=== PATIENT | male | born 1980 | race Native Hawaiian/Other Pacific Islander ===

== ENCOUNTER 2018-08-29 12:36 | Outpatient (CLI) | payer OTHER | END 2018-08-29 12:53 | disposition short-term general hospital (02) | LOC: AMB 12:36 | DX: R10.9 Unspecified abdominal pain (principal); W10.8XXA Fall (on) (from) other stairs and steps, initial encounter; X08.8XXA Exposure to other specified smoke, fire and flames, initial encounter; Y92.010 Kitchen of single-family (private) house as the place of occurrence of the external cause | CPT/HCPCS: A0425; A0427 ==

== ENCOUNTER 2018-08-29 13:02 | Emergency (ER) | payer OTHER ==
[~2018-08-29] VITALS: Ht 175.3 cm; Wt 90.7 kg
[2018-08-29 13:03] VITALS: TEMP 99.9
[2018-08-29 13:48] LABS: PLATELET COUNT 145 K/uL (142-355)
[2018-08-29 13:55] LABS: POTASSIUM 3.7 mmol/L (3.6-5.2)
[2018-08-29 15:43] VITALS: BP 136/89
== END 2018-08-29 16:00 | disposition home or self-care (01) ==
LOC: ED 13:02
PROVIDERS: Family Medicine
DX: S30.1XXA Contusion of abdominal wall, initial encounter (principal); W18.09XA Striking against other object with subsequent fall, initial encounter; Y93.89 Activity, other specified; Y92.010 Kitchen of single-family (private) house as the place of occurrence of the external cause; J70.5 Respiratory conditions due to smoke inhalation
CPT/HCPCS: 36600; 74022; 80053; 82805; 85027; 93005; 96374; 99284; J1642